=== PATIENT | female | born 2000 | race American Indian/Alaskan Native ===

== ENCOUNTER 2021-08-19 23:11 | Emergency (ER) | payer OTHER ==
[2021-08-19] MEDS ORDERED: Lidocaine 1% 10 ML MDV INJECT ONE (23:47)
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
--- NOTE | 2021-08-20 07:47 | CT ---
Head CT Technique: Multiple axial sections through the brain were obtained. Intravenous contrast was not utilized. Reconstructed coronal and sagittal images were obtained. Comparison: No prior head CT studies available. Findings: Soft tissue swelling is noted within the left periorbital region. Right and left globes are symmetric. Ventricles along with basal cisterns and sulci over the convexities are within normal limits for the patient's age. No abnormal parenchymal densities are seen. No evidence of intracranial hemorrhage is seen. No midline shift or mass-effect is seen. Bone window settings were reviewed. No acute calvarial abnormality is appreciated. Visualized paranasal sinuses and mastoid sinuses are clear. Impression: 1. Soft tissue swelling within the left periorbital region. 2. No acute intracranial abnormality is appreciated. Diagnostic code #3 I agree with preliminary report from [facility], finalized on 08/20/21, 1:27 AM CDT, code 1
--- NOTE | 2021-08-20 07:49 | CT ---
CT maxillofacial Technique: Multiple axial sections through the maxillofacial structures were obtained. Reconstructed coronal and sagittal images were obtained. Intravenous contrast was not utilized. Comparison: No prior maxillofacial CT studies available. Findings: Soft tissue swelling is noted within the left periorbital region. Right and left globes are symmetric in size. No retrobulbar abnormality is appreciated. Paranasal sinuses are clear. Maxillary ostia are patent. No acute osseous abnormality is appreciated. No radiopaque foreign object is seen. Impression: 1. Soft tissue swelling within the left periorbital region. 2. No other acute abnormality is identified on CT study of the maxillofacial structures. Diagnostic code #3 I agree with preliminary report from [facility], finalized on 08/20/21, 1:24 AM CDT, code 1
== END 2021-08-20 00:48 | disposition home or self-care (01) ==
LOC: JD.ED 23:11
DX: S01.81XA Laceration without foreign body of other part of head, initial encounter (principal); S00.12XA Contusion of left eyelid and periocular area, initial encounter; Y04.0XXA Assault by unarmed brawl or fight, initial encounter
CPT/HCPCS: 12011; 70450; 70450-26; 70486; 70486-26; 99284-25